=== PATIENT | male | born 1985 ===

== ENCOUNTER 2022-03-11 11:11 | Outpatient (CLI) | payer OTHER, SELFPAY ==
--- NOTE | ~2022-03-11 | MR_ITS ---
EXAMINATION: MR knee LT wo con DATE: 03/11/2022 12:09 INDICATION: Left knee pain TECHNIQUE: Magnetic resonance imaging (MRI) of the left knee was performed without intravenous contra st. Sequences included axial PD-weighted FS FSE, coronal PD-weighted FSE and PD-weighted FS FSE, sagi ttal PD-weighted FSE, and sagittal T2-weighted FS FSE. COMPARISON: None. FINDINGS: Medial compartment: Vertically oriented tear of the posterior horn, medial meniscus. Mild medial meniscal extrusion. Dege nerative fraying of the apex. Multifocal partial-thickness cartilage signal abnormalities. Mild osteo phytosis Lateral compartment: Lateral meniscus intact. Mild diffuse thinning of cartilage. Patellofemoral compartment: Full-thickness cartilage fissure in the trough of the femoral groove. Patellar cartilage intact. Mild osteophytosis. Retinacula are intact. Ligaments and tendons: Thickened MCL as can be seen with chronic tear. ACL, PCL, and LCL are intact. Remaining flexor and ex tensor tendons are intact. Fluid: Moderate volume joint fluid. Osseous/other: Focal marrow edema in the posterior medial aspect of the medial tibial plateau deep to the medial men iscal tear. IMPRESSION: 1. Vertical tear of the posterior horn, medial meniscus, with mild meniscal extrusion and subjacent m arrow edema. 2. Moderate knee joint effusion. 3. Mild tricompartmental osteoarthritic change. Reviewed, dictated and finalized at location K. IMPRESSION: 1. Vertical tear of the posterior horn, medial meniscus, with mild meniscal ext rusion and subjacent marrow edema. 2. Moderate knee joint effusion. 3. Mild tricompartmental osteoarthritic change.
== END 2022-03-11 11:12 ==
PROVIDERS: PCP Orthopaedic Surgery; Visit Provider Orthopaedic Surgery
DX: M25.462 Effusion, left knee (principal); M17.12 Unilateral primary osteoarthritis, left knee
CPT/HCPCS: 73721